=== PATIENT | female | born 1950 | race Caucasian/White ===

== ENCOUNTER 2016-10-22 13:45 | Outpatient (CLI) | payer BC ==
--- NOTE | 2016-10-22 14:48 | DIAGNOSTIC IMAGING REPORT ---
PROCEDURE: XR CHEST 2 VIEW INDICATION: Right lung pneumonia. Follow-up nodular changes. TECHNIQUE: PA and lateral views. COMPARISON: Comparison is made to chest x-ray from [facility] on 10/16/2016. FINDINGS: There has been mild improvement with resolving moderate parenchymal changes in the right mid and lower lung. There is 3-4 old calcified granulomas at the lung bases. The rest of the lungs are clear. Heart and mediastinum are normal. Thorax is normal. IMPRESSION: 1. Mild improvement with resolving right lung parenchymal changes. Overall appearance is most compatible with resolving pneumonia. Underlying neoplastic process is less likely. Nevertheless, follow up chest x-ray in 3-4 weeks is recommended to confirm complete resolution. 2. Findings discussed with LETHA Yusuf.
--- NOTE | 2016-10-22 14:48 | DIAGNOSTIC IMAGING REPORT ---
PROCEDURE: XR CHEST 2 VIEW INDICATION: Right lung pneumonia. Follow-up nodular changes. TECHNIQUE: PA and lateral views. COMPARISON: Comparison is made to chest x-ray from [facility] on 10/16/2016. FINDINGS: There has been mild improvement with resolving moderate parenchymal changes in the right mid and lower lung. There is 3-4 old calcified granulomas at the lung bases. The rest of the lungs are clear. Heart and mediastinum are normal. Thorax is normal. IMPRESSION: 1. Mild improvement with resolving right lung parenchymal changes. Overall appearance is most compatible with resolving pneumonia. Underlying neoplastic process is less likely. Nevertheless, follow up chest x-ray in 3-4 weeks is recommended to confirm complete resolution. 2. Findings discussed with LETHA Yusuf.
== END 2016-10-22 23:00 ==
LOC: XR SRH 13:45
DX: J18.9 Pneumonia, unspecified organism (principal)